=== PATIENT | female | born 1980 | race African-American/Black ===

== ENCOUNTER 2017-09-25 02:35 | Emergency (ER) | payer OTHER, MEDICAID ==
[~2017-09-25] VITALS: Ht 167.6 cm; Wt 76.2 kg
[~2017-09-25 02:35] MED LIST: DIFLUCAN150 MG PO; DOXYCYCLINE 10100 M1 PO; FOLIC ACID 40400 MC1; IBUPROFEN 600600 M1 PO; NOHOMEMEDICATIONS; NORCO 5-325 TA1 EACH PO; PRENATAL; PRENATAL PO; ZANTAC 150MG T150 M1 PO; [UNRECOGNIZED DRUG - REMARK]
[2017-09-25] MEDS ORDERED: TERBINAFINE HC250 MG PO (02:47)
[2017-09-25] MEDS ORDERED: ADDERALL 30 MG30 MG PO (02:47)
[2017-09-25] MEDS ORDERED: INDOMETHACIN 5050 M1 PO (03:14)
[2017-09-25 03:31] VITALS: BP 131/59
== END 2017-09-25 03:33 | disposition home or self-care (01) ==
LOC: M.ERS 02:35
DX: S63.681A Other sprain of right thumb, initial encounter (principal); Z88.5 Allergy status to narcotic agent; Z91.040 Latex allergy status; Z88.6 Allergy status to analgesic agent; Y04.8XXA Assault by other bodily force, initial encounter; Y93.89 Activity, other specified; Y92.89 Other specified places as the place of occurrence of the external cause; Y99.8 Other external cause status